=== PATIENT | female | born 1965 | race Caucasian/White ===

== ENCOUNTER → 2017-03-05 | Outpatient (CLI) | payer BC ==
--- NOTE | 2017-03-05 09:42 | US ---
EXAMINATION TYPE: US thyroid st tissue head/neck DATE OF EXAM: 03/05/2017 8:44 AM COMPARISON: EXAMINATION TYPE: US thyroid st tissue head/neck DATE OF EXAM: 03/05/2017 8:44 AM COMPARISON: NONE CLINICAL HISTORY: Neck Swelling R22.1. Patient recently starting lifting weights and has pain/swellin g posterior left neck. Scanned left posterior neck over area of swelling as well as the right side for comparison purposes, no ultrasound abnormality noted. No worrisome solid or cystic mass or fluid collection is seen on images saved. Normal skin, subcutane ous tissue, and deeper muscles is identified. IMPRESSION: As above.
== END | disposition home or self-care (01) ==
LOC: RADUSWWP 08:42
PROVIDERS: ATTEND Family Medicine
DX: R22.1 Localized swelling, mass and lump, neck (principal)
CPT/HCPCS: 76536

== ENCOUNTER → 2017-03-24 | Outpatient (CLI) | payer BC ==
[2017-03-24 07:06] LABS: Blood Urea Nitrogen 10 mg/dL (7-17); Non-African American GFR(MDRD) >60 (>60 ml/min/1.73 sqM)
--- NOTE | 2017-03-24 08:29 | MR ---
EXAMINATION TYPE: MR neck wo/w con DATE OF EXAM: 03/24/2017 8:03 AM COMPARISON: NONE HISTORY: Neck mass CONTRAST: Standard multiplanar, multisequence MRI departmental protocol utilizing 20 mL intravenous MultiHance gadolinium contrast. FINDINGS: Visualized intracranial structures are normal. The major salivary glands are normal. The parapharyngeal, oropharyngeal and laryngeal soft tissues are normal. The thyroid gland enhances homogeneously. There is no significant cervical adenopathy. At the site of clinical concern, there is an intramuscular lipoma measuring 8.1 x 9 x 4.1 cm. This is situated between the trapezius muscle and displaces the levator scapulas muscle anteriorly. This dem onstrates no significant enhancement. 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
== END | disposition home or self-care (01) ==
LOC: RADMRIMAIN 06:38
PROVIDERS: ATTEND Family Medicine
DX: D17.0 Benign lipomatous neoplasm of skin and subcutaneous tissue of head, face and neck (principal)
CPT/HCPCS: 82565; 84520; 70543; A9577

== ENCOUNTER → 2017-04-04 | Outpatient (CLI) | payer BC ==
--- NOTE | 2017-04-07 11:49 | MM ---
Reason for exam: screening (asymptomatic). Last mammogram was performed 1 year ago. Physical Findings: A clinical breast exam by your physician is recommended on an annual basis and results should be correlated with mammographic findings. MG Screening Mammo w CAD Bilateral CC and MLO view(s) were taken. Prior study comparison: March 22, 2016, bilateral MG screening mammo w CAD. February 24, 2015, bilateral MG screening mammo w CAD. July 20, 2013, bilateral digital screening mammo w/CAD. The breast tissue is heterogeneously dense. This may lower the sensitivity of mammography. There is no discrete abnormality. ASSESSMENT: Negative, BI-RAD 1 RECOMMENDATION: Routine screening mammogram of both breasts in 1 year.
== END | disposition home or self-care (01) ==
LOC: RADMAMWWP 10:39
PROVIDERS: ATTEND Obstetrics & Gynecology
DX: Z12.31 Encounter for screening mammogram for malignant neoplasm of breast (principal)

== ENCOUNTER → 2017-10-07 | Outpatient (CLI) | payer BC ==
[2017-10-07 09:29] LABS: Basophils % (A) 0 %; CH 25.1; CHCM 31.5; Eosinophils # (A) 0.1 k/uL (0-0.7); Eosinophils % (A) 2 %; HCT 38.9 % (34.0-46.0); Hypochromasia Slight; Luc # (Auto) 0.14; Luc % (Auto) 4; Lymphocytes % (A) 30 %; MCH 24.6 pg (25.0-35.0); MCHC 30.8 g/dL (31.0-37.0); MCV 79.9 fL (80.0-100.0); Mean Platelet Volume 6.5; Monocytes # (A) 0.3 k/uL (0-1.0); Monocytes % (A) 7 %; Neutrophils # (A) 1.9 k/uL (1.3-7.7); Neutrophils % (A) 57 %; RBC 4.87 m/uL (3.80-5.40); WBC 3.4 k/uL (3.8-10.6); WBC (Perox) 3.45
== END | disposition home or self-care (01) ==
LOC: LABPAT 08:39
PROVIDERS: ATTEND Obstetrics & Gynecology
DX: I10 Essential (primary) hypertension (principal); Z01.812 Encounter for preprocedural laboratory examination; N92.0 Excessive and frequent menstruation with regular cycle; N85.01 Benign endometrial hyperplasia
CPT/HCPCS: 85025; 87086; 93005

== ENCOUNTER → 2017-10-07 | Outpatient (CLI) | payer BC ==
[2017-10-07 09:29] LABS: ALT 31 U/L (9-52); AST 19 U/L (14-36); Alkaline Phosphatase 78 U/L (38-126); Anion Gap 10 mmol/L; Blood Urea Nitrogen 14 mg/dL (7-17); Calcium 9.7 mg/dL (8.4-10.2); Carbon Dioxide 25 mmol/L (22-30); Chloride 106 mmol/L (98-107); Cholesterol 240 mg/dL (<200); Glucose 107 mg/dL (74-99); HDL Cholesterol 41 mg/dL (40-60); Non-African American GFR(MDRD) >60 (>60 ml/min/1.73 sqM); Potassium 4.4 mmol/L (3.5-5.1); Sodium 141 mmol/L (137-145); Total Bilirubin 0.3 mg/dL (0.2-1.3); Total Protein 6.9 g/dL (6.3-8.2)
== END | disposition home or self-care (01) ==
LOC: LABWHC1 08:36
PROVIDERS: ATTEND Family Medicine
DX: I10 Essential (primary) hypertension (principal); E03.9 Hypothyroidism, unspecified; E78.00 Pure hypercholesterolemia, unspecified
CPT/HCPCS: 36415; 80053; 80061; 84439; 84443

== ENCOUNTER 2017-10-14 07:53 | Observation (INO) | payer BC ==
[2017-10-08 12:25] VITALS: BMI 30.5
[~2017-10-14 07:53] MED LIST: DEXAMETHASONE SOD PHOSPHATE 10 MG/ML 1 ML VIAL IV ONE; HYDROmorphone 0.5 MG/0.5 ML SYRINGE IVP PRN; LACTATED RINGERS 1,000 ML IV SCH; MIDAZOLAM 2 MG/2 ML VIAL IV PRN; ONDANSETRON 4 MG/2 ML VIAL IVP ONE; ceFAZolin IN SWFI 2 GM/20 ML SYRINGE IVP ONE
[2017-10-14] MEDS ORDERED: LIDOCAINE 1% 20 ML VIAL (10MG/ML) FOR IV START INTRADERMA ONE (08:15)
[2017-10-14] MEDS ORDERED: MIDAZOLAM 2 MG/2 ML VIAL IVP ONE (08:51)
[2017-10-14] MEDS ORDERED: fentaNYL (PF) 50 MCG/ML 2 ML AMP IV ONE (08:51)
[2017-10-14] MEDS ORDERED: PROPOFOL 10 MG/ML 20 ML VIAL IV ONE (09:21)
[2017-10-14] MEDS ORDERED: LIDOCAINE 1% INJ 10MG/ML (20 ML MDV) ONE (09:21)
[2017-10-14] MEDS ORDERED: fentaNYL (PF) 50 MCG/ML 2 ML AMP ONE (09:21)
[2017-10-14] MEDS ORDERED: ROCURONIUM BROMIDE 10 MG/ML 10 ML VIAL IV ONE (09:21)
[2017-10-14] MEDS ORDERED: GLYCOPYRROLATE 0.2 MG/ML 2 ML VIAL ONE (09:21)
[2017-10-14] MEDS ORDERED: diphenhydrAMINE 50 MG/ML 1 ML VIAL ONE (09:21)
[2017-10-14] MEDS ORDERED: SUCCINYLCHOLINE CHLORIDE 100 MG/5 ML SYR IV ONE (09:21)
[2017-10-14] MEDS ORDERED: KETOROLAC 30 MG/ML 1 ML VIAL ONE (09:21)
[2017-10-14] MEDS ORDERED: ePHEDrine SULFATE/0.9% NACL/PF 50 MG/5 ML SYRINGE IV ONE (09:21)
[2017-10-14] MEDS ORDERED: NEOSTIGMINE 1 MG/ML 10 ML VIAL ONE (09:21)
[2017-10-14] MEDS ORDERED: VASOPRESSIN 20 UNIT/ML 1 ML VIAL IM ONE (09:38)
[2017-10-14] MEDS ORDERED: VASOPRESSIN 20 UNIT/ML 1 ML VIAL SQ ONE (09:38)
[2017-10-14] MEDS ORDERED: BACITRACIN 500 UNIT/GM OINT 28.4 GM TUBE TOPICAL ONE ×3 (09:52→10:09)
[2017-10-14] MEDS ORDERED: KETOROLAC 30 MG/ML 1 ML VIAL IVP PRN ×2 (10:02→10:20)
[2017-10-14] MEDS ORDERED: MORPHINE SULFATE 4 MG/ML SYRINGE IVP PRN (10:02)
[2017-10-14] MEDS ORDERED: diphenhydrAMINE 50 MG/ML 1 ML VIAL IVP PRN ×2 (10:02→10:20)
[2017-10-14] MEDS ORDERED: NALOXONE 0.4 MG/ML 1 ML VIAL IV PRN (10:02)
[2017-10-14] MEDS ORDERED: LACTATED RINGERS 1,000 ML IV ONE (10:12)
[2017-10-14] MEDS ORDERED: IBUPROFEN 600 MG TAB PO PRN (10:20)
[2017-10-14] MEDS ORDERED: ONDANSETRON 4 MG/2 ML VIAL IVP PRN (10:20)
[2017-10-14] MEDS ORDERED: ZOLPIDEM 5 MG TAB PO PRN (10:20)
[2017-10-14] MEDS ORDERED: Acetaminophen-Codeine 300-30mg TAB PO PRN (10:20)
[2017-10-14] MEDS ORDERED: METOCLOPRAMIDE 5 MG/ML 2 ML VIAL IVP PRN (10:20)
[2017-10-14] MEDS ORDERED: SIMETHICONE 80 MG CHEWABLE PO PRN (10:20)
--- NOTE | 2017-10-14 10:20 | P.OP ---
Date of Procedure: 10/14/17 Preoperative Diagnosis: Persistent menorrhagia Postoperative Diagnosis: Same, pathology pending, normal-appearing ovaries bilaterally Procedure(s) Performed: Vaginal hysterectomy Anesthesia: AFTABA Surgeon: Nasrin Isidro Laboratory Monitor #1: Phyllis Payne Estimated Blood Loss (ml): 50 IV fluids (ml): 900 Urine output (ml): 200 Pathology: other (Cervix and uterus) Condition: stable Disposition: PACU Indications for Procedure: Persistent heavy bleeding despite NovaSure ablation. Description of Procedure: Patient is brought to the operating suite where a general anesthetic is administered after the spinal with Duramorph is placed. She is put in the dorsal lithotomy position. Urine hCG is negative. The appropriate timeout is performed to assure proper patient and procedural identification. Antibiotics are given. Bladder is drained for approximately 200 mL of clear yellow urine. Weighted speculum was placed into the vagina. Anterior lip of the cervix is grasped with a double-tooth tenaculum. Cervix is injected circumferentially with a dilute Pitressin solution. A red lake blade scalpel is used to incise the mucosa with V like positioning in the back. Sponge rolled finger is used to sweep the mucosa from the underlying plane. Metzenbaum scissors are used to enter the peritoneum at 6:00, and this is suture tied with 2-0 Vicryl and held with a hemostat. The large billed speculum is then placed into the peritoneal cavity. At all times the vaginal mucosa is swept well from the operative field. The right uterosacral cardinal ligament is identified, clamped cut and held with a 0 Vicryl suture in a Bud-like fashion. Same procedure is carried out contralaterally. Uterine vasculature is identified, clamped cut and suture ligated. 2 additional pedicles are taken superior to the vessels. The uterus is then "walked out" posteriorly. The anterior peritoneum is entered with the Bovie. Maryse clamps are used across the final pedicles and the uterus and cervix are removed. The pedicles are tied with a Bud stitch with 0 Vicryl, flashed, retied for excellent hemostasis. Bilateral ovaries are inspected and noted to be in the normal range, therefore left in situ per the patient's wishes. Hemostasis is very good. Speculum is changed. The 2-0 Vicryl suture at 6:00 is next brought around in a pursestring fashion to close the peritoneum. The previously held uterosacral cardinal ligaments are then brought across contralaterally to incorporate the opposite pedicle as well as the mucosa. 3 additional [id number]-[id number] sutures are used for final cuff closure. Flores catheter is placed in the urine is noted to be clear. The vagina is packed with a 1 inch iodophor gauze with basic tracing. Hemostasis is excellent. All sponge needle and enhancement counts are correct at the end of our procedure. Patient is brought back to recovery room in stable condition with vital signs blood pressure 96/50, pulse 63, 97% O2 saturation.
[2017-10-14] MEDS: ONDANSETRON 4 MG/2 ML VIAL IVP PRN ×2 (15:18→22:00)
[2017-10-14] MEDS ORDERED: PRAVASTATIN SODIUM 20 MG TAB PO SCH (21:00)
[2017-10-14] MEDS: SENNOSIDES-DOCUSATE SODIUM 1 EACH TAB PO SCH (21:41)
[2017-10-15 04:11] VITALS: RESP 16
[2017-10-15] MEDS ORDERED: LEVOTHYROXINE 75 MCG TAB PO SCH (06:30)
--- NOTE | 2017-10-15 08:15 | P.DS ---
Providers Date of admission: 10/14/17 20:37 Expected date of discharge: 10/15/17 Attending physician: Nasrin Isidro Primary care physician: [facility] Course: This is a 52-year-old white female who presented with persistent hypermenorrhea and menorrhagia. Endometrial biopsy previously revealed endometrial hyperplasia without atypia. Patient elected at this point to proceed with vaginal hysterectomy. Please see my admitting history and physical for details. Patient was admitted yesterday a [facility] and underwent a vaginal hysterectomy under my care. She did very well intraoperatively, ovaries were kept in situ per her wishes is the did appear normal to inspection. Vagina was packed with iodoform gauze and Flores catheter placed. Patient did receive a spinal with Duramorph for analgesic purposes. Please see my dictated operative note for details. The patient is doing well. Flores catheter and vaginal packing had been removed. She is voiding, ambulating, and passing flatus without difficulty. Vital signs are stable and she is afebrile. She is tolerating regular diet, and is showering. Pain is well-controlled. Patient is being discharged home later today in very good condition. She will follow-up with me in the office in 2 weeks. I have reminded her no intercourse , tampons or douching. She will use [id number] ibuprofen products, 200 mg pills, 3 every 6 hours as needed for pain. I've asked her to call me with any fevers shakes or chills, foul smelling or bloody vaginal drainage, with any pain not alleviated by eree-jci-holaadu ibuprofen, or indeed with any difficulties or concerns. No driving, no intercourse, no heavy lifting, no vacuuming. She will follow-up with the office in 2 weeks for postoperative check, or as needed for any concerns. Patient Condition at Discharge: Good Plan - Discharge Summary Discharge Rx Participant: Yes New Discharge Prescriptions: No Action Lisinopril [Prinivil] 20 mg PO DAILY FLUoxetine HCL [PROzac] 20 mg PO DAILY Levothyroxine Sodium [Synthroid] 75 mcg PO DAILY Pravastatin Sodium [Pravachol] 20 mg PO DAILY Discharge Medication List FLUoxetine HCL [PROzac] 20 mg PO DAILY 09/03/14 [History] Levothyroxine Sodium [Synthroid] 75 mcg PO DAILY 09/03/14 [History] Lisinopril [Prinivil] 20 mg PO DAILY 09/03/14 [History] Pravastatin Sodium [Pravachol] 20 mg PO DAILY 11/20/16 [History] Follow up Appointment(s)/Referral(s): Nasrin Isidor MD [STAFF PHYSICIAN] - 2 Weeks Discharge Disposition: HOME SELF-CARE
--- NOTE | 2017-10-15 08:26 | P.PN ---
Progress Note - Text Date:10/15 Time:710 Patient is status post vaginal hystrectomy. Patient seen this morning with VAS score of 2. c/o of pruritus, c/o nausea/vomiting. She is comfortable and doing well today.
[2017-10-15] MEDS ORDERED: LISINOPRIL 20 MG TAB PO SCH (09:00)
[2017-10-15] MEDS ORDERED: FLUoxetine HCL 20 MG CAP PO SCH (09:00)
[2017-10-15] MEDS: SENNOSIDES-DOCUSATE SODIUM 1 EACH TAB PO SCH (09:37)
[2017-10-15 10:22] VITALS: BP 106/58; PULSE 80; TEMP 99.1
[2017-10-15] MEDS ORDERED: ACETAMINOPHEN TAB 325 MG TAB PO PRN (10:22)
== END 2017-10-15 12:40 | disposition home or self-care (01) ==
LOC: OR 07:53 → 6PED 10:16 → OR 20:37
PROVIDERS: ADMIT Obstetrics & Gynecology; ATTEND Obstetrics & Gynecology
DX: D25.9 Leiomyoma of uterus, unspecified (principal); N92.0 Excessive and frequent menstruation with regular cycle; N85.01 Benign endometrial hyperplasia; Z79.899 Other long term (current) drug therapy; E78.00 Pure hypercholesterolemia, unspecified; I10 Essential (primary) hypertension
CPT/HCPCS: 81025; 86900; 86901; 86850; 88307; 58260; G0378 ×2; J2250; J1200; J1100; J2710; J0690; J2405; J2001; J3010; J1885; J0330; J2704

== ENCOUNTER 2018-02-01 10:29 | Emergency (ER) | payer BC ==
[2018-02-01 10:54] VITALS: PULSE 87; RESP 18; TEMP 98.7
[2018-02-01 11:35] LABS: Basophils % (A) 1 %; Eosinophils # (A) 0.1 k/uL (0-0.7); Eosinophils % (A) 2 %; HGB 12.3 gm/dL (11.4-16.0); Lymphocytes # (A) 0.8 k/uL (1.0-4.8); Lymphocytes % (A) 21 %; MCH 25.9 pg (25.0-35.0); MCHC 33.2 g/dL (31.0-37.0); MCV 77.9 fL (80.0-100.0); Microcytosis Slight; Monocytes # (A) 0.2 k/uL (0-1.0); Monocytes % (A) 5 %; Neutrophils # (A) 2.5 k/uL (1.3-7.7); Neutrophils % (A) 69 %; Platelet Count 300 k/uL (150-450); RBC 4.74 m/uL (3.80-5.40); RDW 15.4 % (11.5-15.5); WBC 3.6 k/uL (3.8-10.6)
[2018-02-01 11:38] LABS: Appearance,Urine Cloudy (Clear); Bacteria,Urine Rare /hpf; Bilirubin,Urine Negative (Negative); Blood,Urine Negative (Negative); Calcium Oxalate Crystals,Urine Rare /hpf; Color,Urine Yellow; Glucose,Urine (UA) Negative (Negative); Ketones,Urine Negative (Negative); Leukocyte Esterase,Urine Negative (Negative); Mucus,Urine Few /hpf; Nitrite,Urine Negative (Negative); Protein,Urine Trace (Negative); RBC,Urine 1 /hpf (0-5); Specific Gravity,Urine 1.019 (1.001-1.035); Squamous Epithelial Cell,Urine 5 /hpf (0-4); Urobilinogen,Urine <2.0 mg/dL (<2.0); WBC,Urine 3 /hpf (0-5)
[2018-02-01 11:46] LABS: ALT 127 U/L (9-52); AST 85 U/L (14-36); Albumin 4.2 g/dL (3.5-5.0); Alkaline Phosphatase 94 U/L (38-126); Amylase 43 U/L (30-110); Anion Gap 13 mmol/L; Blood Urea Nitrogen 11 mg/dL (7-17); Calcium 9.5 mg/dL (8.4-10.2); Carbon Dioxide 24 mmol/L (22-30); Chloride 105 mmol/L (98-107); Glucose 149 mg/dL (74-99); Lipase 45 U/L (23-300); Potassium 4.1 mmol/L (3.5-5.1); Sodium 142 mmol/L (137-145); Total Bilirubin 0.5 mg/dL (0.2-1.3); Total Protein 6.9 g/dL (6.3-8.2)
--- NOTE | 2018-02-01 12:18 | XR ---
EXAMINATION TYPE: XR KUB DATE OF EXAM: 02/01/2018 12:10 PM CLINICAL HISTORY: Abdominal pain TECHNIQUE: Single upright image of the abdomen is obtained. COMPARISON: None. FINDINGS: Scattered gas is seen in non-distended small bowel loops. Gas and fecal material is seen in non-distended colon. There is no visceromegaly or pneumoperitoneum appreciated. Layering calcificati ons could be within an elongated gallbladder and represent choleliths, within a partially exophytic r enal cyst, or atypical nephrolithiasis. The lung bases are clear and the osseous structures are intac t. IMPRESSION: 1. Nonobstructive bowel gas pattern. 2. Layering calcifications are thought to be within an elongated gallbladder but could represent calc ifications of a partially exophytic renal cyst or atypical nephrolithiasis. Abdominal ultrasound coul d be performed for further evaluation of potential cholelithiasis.
--- NOTE | 2018-02-01 12:38 | ED ---
General Adult HPI - General Chief complaint: Abdominal Pain Stated complaint: SOB & vomiting Time Seen by Provider: 02/01/18 10:50 Source: patient, RN notes reviewed Mode of arrival: ambulatory Limitations: no limitations - History of Present Illness Initial comments: This is a 52-year-old female presents emergency department stating that she has been having a dry cough for about a month now. Patient states she has not followed up. Patient comes in today complaining that she started having epigastric and a little bit of right upper quadrant abdominal pain this morning she vomited a couple times and so she decided to come into the emergency department secondary to a these symptoms. Patient denies any fever or chills. Patient denies any dysuria hematuria urinary frequency. Patient denies any back pain. Patient denies patient states earlier when she was having abdominal pain and vomiting she felt short of breath per say she stop vomiting or shortness of breath resolved. Patient denies any chest pain and denies difficulty breathing at this time. - Related Data Home Medications Medication Instructions Recorded Confirmed FLUoxetine HCL [PROzac] 20 mg PO DAILY 09/03/14 02/01/18 Levothyroxine Sodium [Synthroid] 75 mcg PO DAILY 09/03/14 02/01/18 Pravastatin Sodium [Pravachol] 20 mg PO DAILY 11/20/16 02/01/18 Losartan/Hydrochlorothiazide 1 tab PO DAILY 02/01/18 02/01/18 [Losartan-Hctz 100-12.5 mg Tab] Allergies Allergy/AdvReac Type Severity Reaction Status Date / Time No Known Allergies Allergy Verified 02/01/18 13:03 Review of Systems ROS Statement: Those systems with pertinent positive or pertinent negative responses have been documented in the HPI. ROS Other: All systems not noted in ROS Statement are negative. Past Medical History Past Medical History: Hyperlipidemia, Hypertension, Thyroid Disorder History of Any Multi-Drug Resistant Organisms: None Reported Past Surgical History: Hysterectomy Additional Past Surgical History / Comment(s): tummy tuck. COLONOSCOPY. lipoma removed Past Anesthesia/Blood Transfusion Reactions: No Reported Reaction Past Psychological History: Depression Smoking Status: Never smoker Past Alcohol Use History: Occasional Past Drug Use History: None Reported - Past Family History Mother Family Medical History: No Reported History Additional Family Medical History / Comment(s): mom of stomach aneurysm General Exam - General Exam Comments Initial Comments: GENERAL: Patient is well-developed and well-nourished. Patient is nontoxic and well- hydrated and is in mild distress. ENT: Neck is soft and supple. No significant lymphadenopathy is noted. Oropharynx is clear. Moist mucous membranes. Neck has full range of motion without eliciting any pain. EYES: The sclera were anicteric and conjunctiva were pink and moist. Extraocular movements were intact and pupils were equal round and reactive to light. Eyelids were unremarkable. PULMONARY: Unlabored respirations. Good breath sounds bilaterally. No audible rales rhonchi or wheezing was noted. CARDIOVASCULAR: There is a regular rate and rhythm without any murmurs gallops or rubs. ABDOMEN: Epigastric abdominal pain and mild right upper quadrant abdominal pain SKIN: Skin is clear with no lesions or rashes and otherwise unremarkable. NEUROLOGIC: Patient is alert and oriented x3. Cranial nerves II through XII are grossly intact. Motor and sensory are also intact. Normal speech, volume and content. Symmetrical smile. MUSCULOSKELETAL: Normal extremities with adequate strength and full range of motion. No lower extremity swelling or edema. No calf tenderness. LYMPHATICS: No significant lymphadenopathy is noted PSYCHIATRIC: Normal psychiatric evaluation. Normal interpersonal interactions appears functionally intact in deals appropriately with others. No signs of depression. No signs of anxiety. Limitations: no limitations Course Vital Signs 02/01/18 10:51 Temperature 98.7 F Pulse Rate 87 Respiratory 18 Rate Blood Pressure 139/94 O2 Sat by Pulse 96 Oximetry Medical Decision Making - Medical Decision Making Ultrasound showed no signs of cholecystitis but did have cholelithiasis. I went back into reevaluate the patient patient was having no pain at this time. Ultrasound also showed some abnormality to the acute kidney and is recommending an outpatient CT of the kidney. I informed the patient of this. - Lab Data Result diagrams: 02/01/18 11:20 02/01/18 11:20 Lab Results 02/01/18 02/01/18 02/01/18 Range/Units 11:20 11:20 11:20 WBC 3.6 L (3.8-10.6) k/uL RBC 4.74 (3.80-5.40) m/uL Hgb 12.3 (11.4-16.0) gm/dL Hct 37.0 (34.0-46.0) % MCV 77.9 L (80.0-100.0) fL MCH 25.9 (25.0-35.0) pg MCHC 33.2 (31.0-37.0) g/dL RDW 15.4 (11.5-15.5) % Plt Count 300 (150-450) k/uL Neutrophils % 69 % Lymphocytes % 21 % Monocytes % 5 % Eosinophils % 2 % Basophils % 1 % Neutrophils # 2.5 (1.3-7.7) k/uL Lymphocytes # 0.8 L (1.0-4.8) k/uL Monocytes # 0.2 (0-1.0) k/uL Eosinophils # 0.1 (0-0.7) k/uL Basophils # 0.0 (0-0.2) k/uL Microcytosis Slight Sodium 142 (137-145) mmol/L Potassium 4.1 (3.5-5.1) mmol/L Chloride 105 (98-107) mmol/L Carbon Dioxide 24 (22-30) mmol/L Anion Gap 13 mmol/L BUN 11 (7-17) mg/dL Creatinine 0.60 (0.52-1.04) mg/dL Est GFR (CKD-EPI)AfAm >90 (>60 ml/min/1.73 sqM) Est GFR (CKD-EPI)NonAf >90 (>60 ml/min/1.73 sqM) Glucose 149 H (74-99) mg/dL Calcium 9.5 (8.4-10.2) mg/dL Total Bilirubin 0.5 (0.2-1.3) mg/dL AST 85 H (14-36) U/L ALT 127 H (9-52) U/L Alkaline Phosphatase 94 (38-126) U/L Total Protein 6.9 (6.3-8.2) g/dL Albumin 4.2 (3.5-5.0) g/dL Amylase 43 (30-110) U/L Lipase 45 (23-300) U/L Urine Color Yellow Urine Appearance Cloudy H (Clear) Urine pH 6.0 (5.0-8.0) Ur Specific [place] 1.019 (1.001-1.035) Urine Protein Trace H (Negative) Urine Glucose (UA) Negative (Negative) Urine Ketones Negative (Negative) Urine Blood Negative (Negative) Urine Nitrite Negative (Negative) Urine Bilirubin Negative (Negative) Urine Urobilinogen <2.0 (<2.0) mg/dL Ur Leukocyte Esterase Negative (Negative) Urine RBC 1 (0-5) /hpf Urine WBC 3 (0-5) /hpf Ur Squamous Epith Cells 5 H (0-4) /hpf Calcium Oxalate Crystal Rare H (None) /hpf Urine Bacteria Rare H (None) /hpf Urine Mucus Few H (None) /hpf Disposition Clinical Impression: Cholelithiasis, Biliary colic Disposition: HOME SELF-CARE Condition: Good Instructions: Biliary Colic (ED), Gallstones (ED) Referrals: Melissa Arzate MD [Primary Care Provider] - 1-2 days Time of Disposition: 13:54
--- NOTE | 2018-02-01 13:08 | US ---
EXAMINATION TYPE: US gallbladder DATE OF EXAM: 02/01/2018 COMPARISON: NONE CLINICAL HISTORY: Pain. Patient states coughing x 2-3 months. Pain. Not NPO. Stomach tightness. EXAM MEASUREMENTS: Liver Length: 24.8 cm Gallbladder Wall: 0.2 cm CBD: 0.5 cm CHD: 0.5 cm Right Kidney: 11.4 x 5.4 x 6.4 cm cm Limited exam due to overlying bowel gas Pancreas: Obscured by bowel gas Liver: Increased attenuation, decreased visualization of vessels suggestive of fatty infiltrate. Thi s limits evaluation for focal hepatic lesions. Gallbladder: Mobile echogenic foci with shadowing seen. Possible sludge. Evidence for sonographic Sanz's sign: neg CBD: wnl CHD: wnl Right Kidney: Complex lower pole echogenic lesion, nonvascular with shadowing seen = 2.1 x 1.4 x 1. 9 cm IMPRESSION: 1. Cholelithiasis without sonographic evidence of acute cholecystitis. 2. Findings most compatible with hepatic steatosis, appearing at least moderate. 3. Complex lower pole right renal lesion for which full characterization on a nonemergent basis with dynamic contrast-enhanced CT or MR abdomen (renal mass protocol) is recommended.
--- NOTE | 2018-02-01 13:31 | XR ---
EXAMINATION TYPE: XR chest 2V DATE OF EXAM: 02/01/2018 COMPARISON: 10/10/2014 HISTORY: Chest pain and nausea TECHNIQUE: Frontal and lateral views of the chest are obtained. FINDINGS: There is no focal air space opacity, pleural effusion, or pneumothorax seen. The cardiac silhouette size is within normal limits. The osseous structures are intact. IMPRESSION: No acute cardiopulmonary process.
[2018-02-01 14:01] VITALS: BP 138/87
== END 2018-02-01 14:01 | disposition home or self-care (01) ==
LOC: EC 10:29
DX: K80.70 Calculus of gallbladder and bile duct without cholecystitis without obstruction (principal); E78.5 Hyperlipidemia, unspecified; I10 Essential (primary) hypertension; E07.9 Disorder of thyroid, unspecified; F32.9 Major depressive disorder, single episode, unspecified; Z90.710 Acquired absence of both cervix and uterus; Z79.899 Other long term (current) drug therapy
CPT/HCPCS: 36415; 71046; 74018; 76705; 80053; 81001; 82150; 83690; 85025; 99284

== ENCOUNTER → 2018-02-06 | Outpatient (CLI) | payer BC ==
--- NOTE | 2018-02-06 09:49 | CT ---
EXAMINATION TYPE: CT abdomen wo/w con DATE OF EXAM: 02/06/2018 HISTORY: Rt renal mass CT DLP: 1950.9mGycm Automated Exposure Control for Dose Reduction was Utilized. CONTRAST: CT scan of the abdomen was performed without and with IV Contrast, patient injected with 100 mL of Om nipaque 300. Oral contrast was used per protocol. COMPARISON: None. FINDINGS: LUNG BASES: No significant abnormality is appreciated. LIVER/GB: Hepatic parenchyma is diffusely hypoattenuated in comparison to that of the spleen, most co mmonly seen in hepatic steatosis. This finding limits evaluation for hepatic masses. No gross evidenc e of hepatic mass is seen. No intrahepatic biliary ductal dilatation. Numerous choleliths are seen wi thin the gallbladder. PANCREAS: There is no ductal dilatation within the pancreas. Pancreas enhances homogeneously. SPLEEN: No significant abnormality is seen. ADRENALS: No significant abnormality is seen. KIDNEYS: There is a minimally complex right lower pole renal cyst with peripheral posterior thin rim calcifications on series 3 image 42 measuring approximately 2.2 x 2.0 x 2.0 cm. This has an average p recontrast Hounsfield unit of 16, postcontrast of 22, and delayed of 23 and therefore no significant enhancement is seen. No mural nodularity. Small thin solitary internal septation is seen on series 8 image 92 and series 3 image 42, faint and hyperdense. Additionally there is an exophytic left upper p ole 1.0 cm renal cyst. The remaining kidney parenchyma enhances homogeneously bilaterally. No hydrone phrosis. BOWEL: Bowel wall thickening is noted of the transverse colon such as on series 5 image 42 at is long segment measuring over 7 cm.. LYMPH NODES: No greater than 1cm abdominal or pelvic lymph nodes are appreciated. Few nonenlarged per ipancreatic and periaortic lymph nodes are noted. OSSEOUS STRUCTURES: No significant abnormality is seen. Mild degenerative changes of the lower thorac olumbar spine as visualized are seen. OTHER: Extensive phlegmonous changes and inflammatory fat stranding center around a loop of probable unopacified, nonenhancing small bowel extending posteriorly to the pancreatic head and anteriorly to surround the transverse colon. No focal fluid collection or peripheral rim enhancement is seen to sug gest current abscess. IMPRESSION: 1. Extensive right paracentral mesenteric inflammatory fat stranding with adjacent long segment large bowel thickening, and extending to surround the pancreatic uncinate process. This could represent sp ontaneous hemorrhage, underlying mesenteric mass, or less likely extensive sequela of colitis or ente ritis, pancreatitis, or focal small bowel ischemia. If the patient is unstable ER visit is recommende d. Additionally surgical consultation is recommended. Correlation with CBC, serum amylase/lipase, and lactic acid recommended. Findings were discussed with the ordering physician at 9:46 AM on 02/06/[address] Coffey. 2. The right renal minimally complex lesion is thinning of a Bosniak 2F cyst given its rim calcificat ions and septa and six-month follow-up CT is recommended to ensure stability. 3. Cholelithiasis.
== END | disposition home or self-care (01) ==
LOC: RADCTMAIN 06:49
PROVIDERS: ATTEND Family Medicine
DX: N28.9 Disorder of kidney and ureter, unspecified (principal); K80.20 Calculus of gallbladder without cholecystitis without obstruction; K63.89 Other specified diseases of intestine
CPT/HCPCS: 74170; Q9967

== ENCOUNTER 2018-05-15 07:37 | Day surgery (SDC) | payer BC ==
[2018-05-12 09:17] VITALS: BMI 30.4
--- NOTE | 2018-05-15 07:04 | P.GSHP ---
History of Present Illness H&P Date: 05/15/18 CHIEF COMPLAINT: Cholecystitis HISTORY OF PRESENT ILLNESS: The patient is a 52-year-old female who presents with history of epigastric including right upper quadrant abdominal pain. She underwent diagnostic studies for her gallbladder. Separately her clinical picture was consistent with cholecystitis. Now she presents for surgical intervention. PAST MEDICAL HISTORY: Please see list PAST SURGICAL HISTORY: Please see list MEDICATIONS: Please see list ALLERGIES: Denies. SOCIAL HISTORY: No illicit drug use FAMILY HISTORY: Pertinent for gallbladder disease REVIEW OF ORGAN SYSTEMS: CONSTITUTIONAL: No reports of fevers or chills. HEENT: Denies any troubles with the vision or hearing. ENDOCRINE: No reports of hypothyroidism. No diabetes. RESPIRATORY: No recent pneumonias. CARDIOVASCULAR: Denies chest pain or palpitations GI: No blood in stools or constipation. MUSCULOSKELETAL: Has occasional joint pain including back pain. NEURO: No seizure disorders or headaches. No recent stroke. PSYCH: No depression or suicidal ideation. HEMATOLOGIC: No personal or family history of DVTs or pulmonary emboli. PHYSICAL EXAM: VITAL SIGNS: Afebrile vital signs stable GENERAL: Well-developed pleasant in no acute distress. HEENT: No scleral icterus. Extraocular movements grossly intact. Moist buccal mucosa. NECK: Supple without lymphadenopathy. CHEST: Unlabored respirations. Equal bilateral excursions. CARDIOVASCULAR: Regular rate regular rhythm rhythm. Distal 2+ pulses. ABDOMEN: Soft, nondistended. Tender along the epigastrium and right upper quadrant. MUSCULOSKELETAL: No clubbing, cyanosis, or edema. NEURO: Cranial nerves II to XII within normal limits. No focal or lateralizing signs. PSYCH: Alert and oriented to person, place and time. ASSESSMENT: 1. Epigastric and right upper quadrant abdominal pain 2. Chronic cholecystitis PLAN: 1. Will need a robotic cholecystectomy possible open. Benefits and risks were described. 2. Heparin for DVT prophylaxis 5000 units. 3. Antibiotic prophylaxis. Past Medical History Past Medical History: Hyperlipidemia, Hypertension, Thyroid Disorder History of Any Multi-Drug Resistant Organisms: None Reported Past Surgical History: Hysterectomy Additional Past Surgical History / Comment(s): tummy tuck. COLONOSCOPY. lipoma removed Past Anesthesia/Blood Transfusion Reactions: No Reported Reaction Smoking Status: Never smoker - Past Family History Mother Family Medical History: No Reported History Additional Family Medical History / Comment(s): mom of stomach aneurysm Medications and Allergies Home Medications Medication Instructions Recorded Confirmed Type FLUoxetine HCL [PROzac] 20 mg PO DAILY 09/03/14 05/12/18 History Levothyroxine Sodium [Synthroid] 75 mcg PO DAILY 09/03/14 05/12/18 History Pravastatin Sodium [Pravachol] 20 mg PO DAILY 11/20/16 05/12/18 History Losartan/Hydrochlorothiazide 1 tab PO DAILY 02/01/18 05/12/18 History [Losartan-Hctz 100-12.5 mg Tab] Allergies Allergy/AdvReac Type Severity Reaction Status Date / Time No Known Allergies Allergy Verified 05/12/18 08:57
[~2018-05-15 07:37] MED LIST changes: +HEPARIN SODIUM,PORCINE 5,000 UNIT/ML 1 ML VIAL SQ ONE; +INDOCYANINE GREEN 25 MG VIAL IV STA; +LIDOCAINE 1% 20 ML VIAL (10MG/ML) FOR IV START INTRADERMA PRN; +SCOPOLAMINE 1.5MG/72HR PATCH TRANSDERM ONE
[2018-05-15 08:19] LABS: ALT 33 U/L (9-52); AST 20 U/L (14-36); Albumin 4.2 g/dL (3.5-5.0); Alkaline Phosphatase 82 U/L (38-126); Anion Gap 10 mmol/L; Blood Urea Nitrogen 15 mg/dL (7-17); Calcium 9.5 mg/dL (8.4-10.2); Carbon Dioxide 26 mmol/L (22-30); Chloride 105 mmol/L (98-107); Glucose 115 mg/dL (74-99); Potassium 4.3 mmol/L (3.5-5.1); Sodium 141 mmol/L (137-145); Total Bilirubin 0.3 mg/dL (0.2-1.3); Total Protein 6.5 g/dL (6.3-8.2)
[2018-05-15 08:25] LABS: Basophils % (A) 0 %; Eosinophils # (A) 0.1 k/uL (0-0.7); Eosinophils % (A) 1 %; HCT 40.2 % (34.0-46.0); HGB 13.7 gm/dL (11.4-16.0); Lymphocytes # (A) 1.5 k/uL (1.0-4.8); Lymphocytes % (A) 31 %; MCH 27.8 pg (25.0-35.0); MCHC 34.2 g/dL (31.0-37.0); MCV 81.2 fL (80.0-100.0); Mean Platelet Volume 6.3; Monocytes # (A) 0.3 k/uL (0-1.0); Monocytes % (A) 5 %; Neutrophils # (A) 2.8 k/uL (1.3-7.7); Neutrophils % (A) 59 %; Platelet Count 333 k/uL (150-450); RBC 4.95 m/uL (3.80-5.40); RDW 14.6 % (11.5-15.5); WBC 4.8 k/uL (3.8-10.6)
[2018-05-15] MEDS ORDERED: SUCCINYLCHOLINE CHLORIDE 100 MG/5 ML SYR IV ONE (09:11)
[2018-05-15] MEDS ORDERED: NEOSTIGMINE 1 MG/ML 10 ML VIAL ONE (09:11)
[2018-05-15] MEDS ORDERED: MIDAZOLAM 2 MG/2 ML VIAL ONE (09:11)
[2018-05-15] MEDS ORDERED: GLYCOPYRROLATE 0.2 MG/ML 2 ML VIAL ONE (09:11)
[2018-05-15] MEDS ORDERED: PROPOFOL 10 MG/ML 20 ML VIAL IV ONE (09:11)
[2018-05-15] MEDS ORDERED: fentaNYL (PF) 50 MCG/ML 2 ML AMP ONE (09:11)
[2018-05-15] MEDS ORDERED: ROCURONIUM BROMIDE 10 MG/ML 10 ML VIAL IV ONE (09:11)
[2018-05-15] MEDS ORDERED: LIDOCAINE 1% INJ 10MG/ML (20 ML MDV) ONE (09:11)
[2018-05-15] MEDS ORDERED: BUPIVACAINE (PF) 0.5% 30 ML VIAL SQ ONE (09:39)
--- NOTE | 2018-05-15 10:49 | P.OP ---
Date of Procedure: 05/15/18 Preoperative Diagnosis: Cholecystitis Postoperative Diagnosis: Cholecystitis Procedure(s) Performed: Cholecystectomy, robotic approach Anesthesia: GETA, local Surgeon: Nasrin Randhawa Estimated Blood Loss (ml): 10 Pathology: other (Gallbladder) Condition: stable Disposition: same day Operative Findings: Severe fatty liver disease with hepatomegaly obscuring view of the gallbladder and adding additional time for her case Plan - Discharge Summary New Discharge Prescriptions: New HYDROcodone/APAP 5-325MG [[place] 5-325] 1 tab PO Q4HR PRN 3 Days #18 tab PRN Reason: Pain No Action FLUoxetine HCL [PROzac] 20 mg PO DAILY Levothyroxine Sodium [Synthroid] 75 mcg PO DAILY Pravastatin Sodium [Pravachol] 20 mg PO DAILY Losartan/Hydrochlorothiazide [Losartan-Hctz 100-12.5 mg Tab] 1 tab PO DAILY Discharge Medication List FLUoxetine HCL [PROzac] 20 mg PO DAILY 09/03/14 [History] Levothyroxine Sodium [Synthroid] 75 mcg PO DAILY 09/03/14 [History] Pravastatin Sodium [Pravachol] 20 mg PO DAILY 11/20/16 [History] Losartan/Hydrochlorothiazide [Losartan-Hctz 100-12.5 mg Tab] 1 tab PO DAILY 10/11 [History] HYDROcodone/APAP 5-325MG [[place] 5-325] 1 tab PO Q4HR PRN 3 Days #18 tab [Rx]
[2018-05-15 11:02] VITALS: TEMP 97.4
[2018-05-15] MEDS ORDERED: LACTATED RINGERS 1,000 ML IV ONE ×3 (11:22)
[2018-05-15] MEDS ORDERED: ONDANSETRON 4 MG/2 ML VIAL IVP ONE (11:27)
[2018-05-15] MEDS ORDERED: KETOROLAC 30 MG/ML 1 ML VIAL IVP ONE (11:28)
[2018-05-15 12:09] VITALS: RESP 18
[2018-05-15 12:39] VITALS: BP 133/68; PULSE 70
--- NOTE | 2018-05-17 22:34 | P.OP ---
Date of Procedure: 05/15/18 Description of Procedure: Date of Procedure: 05/15/18 SURGEON: KATHY LESTER MD PREOPERATIVE DIAGNOSES: 1. Symptomatic gallstones 2. Chronic cholecystitis 3. Hyperlipidemia 4. Hypertensive heart disease 5. Hypothyroidism 6. Depressive disorder 7. Obesity due to excess calories, BMI 30.5 POSTOPERATIVE DIAGNOSES: 1. Symptomatic gallstones 2. Chronic cholecystitis 3. Hyperlipidemia 4. Hypertensive heart disease 5. Hypothyroidism 6. Depressive disorder 7. Obesity due to excess calories, BMI 30.5 8. Severe hepatomegaly with fatty liver disease OPERATION: Robotic-assisted da Camille Xi laparoscopic cholecystectomy, multiport with FIREFLY Anesthesia: GETA, local Estimated Blood Loss (ml): 10 Pathology: other (Gallbladder) Condition: stable Disposition: same day COMPLICATIONS: None. OPERATIVE FINDINGS: 1. Severe fatty liver disease with hepatomegaly obscuring view of the gallbladder and adding additional time for her case INDICATIONS: The patient is a 52-year-old female who presents with cholelcystitis. Surgical intervention with a laparoscopic cholecystectomy was described at length including injury to the biliary tree, bleeding, infection, need for further surgery. Informed consent was obtained. Robotic assisted laparoscopic approach was described. Benefits and risks of the procedure including but not limited to bleeding, infection, injury to the biliary tree was described. Informed consent was obtained. DESCRIPTION OF PROCEDURE: Patient was brought to the operating room, placed in supine position. After general induction, the abdomen had been prepped and draped in standard sterile fashion. The robotic da Camille XI system was primed. After a timeout protocol was performed, the patient had been prepped and draped in standard sterile fashion. The patient was injected with indocyanine green. A 5 mm 0 degrees laparoscopic trocar entry was performed along the left upper quadrant. The abdomen insufflated to 15 mmHg pressure which she tolerated well. Diagnostic laparoscopy demonstrated no injury to bowel viscera or mesentery. The liver surface was unremarkable. Next, two 8 mm robotic ports were placed along the right upper abdomen. The camera 8-mm port was maintained along the epigastrium. Another 8 mm port was placed along the left upper abdominal wall after exchanging the 5 mm port. Please note that the ports were placed at least 10 to 15 cm away from the target anatomy of the gallbladder. The robot was docked along the left lateral abdomen. The patient was repositioned in steep reverse Trendelenburg position 20 degrees. Using a grasper for arm 3, a grasper for arm 4, including hook cautery for arm 1 , and the robotic system was docked and primed as described. Instruments were interchanged by the plumber assistant including hook cautery, Bovie cautery and clip appliers. I had sat at the console. Adhesions were identified along the infundibulum of the gallbladder and addressed using hook cautery. The gallbladder fundus was retracted over the dome of the liver. Initial attention was brought to the infundibulum which was gently retracted in the inferior lateral approach. Using a grasper, the cystic duct including the cystic artery was carefully skeletonized. FIREFLY was used to identify the cystic artery and cystic structures. Large PLASTIC clips were used throughout the entire case. Using a clip cloth grader supervisor 2 clips were placed proximally, and 1 clip was placed distally along the cystic duct and then cauterized with the cautery. Again care was taken to avoid any injury to the biliary tree as the common bile duct was clearly visualized during this portion of dissection. Next , the cystic artery was similarly clipped and cauterized. Electro-Bovie cautery was used to remove the gallbladder from the hepatic fossa. Hemostasis was checked and found to be adequate. The robot was undocked. I re-scrubbed into the case. Using a 10 mm Endo Catch bag via the left upper quadrant incision, the specimen was removed from the abdominal cavity. All pneumoperitoneum instruments were evacuated from the abdominal cavity. The incisions were re-approximated using 4-0 Monocryl in an interrupted subcuticular fashion. Fascial defects were less than 8 mm in size. Please note along the trocar sites, local anesthetic was placed as a field block prior to insertion of all instruments. Liquid glue was applied to the skin. At the end of the procedure needle, sponge, and instrument count had been verified correct by the rn neurosurgical. The patient was transferred to postanesthesia care unit in stable condition. Fatty liver findings discussed with family on the phone.
== END 2018-05-15 13:55 | disposition home or self-care (01) ==
LOC: OR 07:37
PROVIDERS: ATTEND Surgery Plastic and Reconstructive Surgery
DX: K80.10 Calculus of gallbladder with chronic cholecystitis without obstruction (principal); I11.9 Hypertensive heart disease without heart failure; F32.9 Major depressive disorder, single episode, unspecified; K82.8 Other specified diseases of gallbladder; E03.9 Hypothyroidism, unspecified; E78.5 Hyperlipidemia, unspecified; K76.0 Fatty (change of) liver, not elsewhere classified; R16.0 Hepatomegaly, not elsewhere classified; E66.09 Other obesity due to excess calories; Z68.30 Body mass index [BMI] 30.0-30.9, adult; Z79.899 Other long term (current) drug therapy
CPT/HCPCS: 88304; 80053; 85025; 47562; J2250; J1644; J1100; J2710; J2405; J2001; J3010; J1885; J0330; J2704; J0690

== ENCOUNTER → 2019-11-06 | Outpatient (CLI) | payer BC ==
--- NOTE | 2019-11-08 12:36 | CT ---
EXAMINATION TYPE: CT abdomen pelvis w con DATE OF EXAM: 11/06/2019 COMPARISON: 02/06/2018 INDICATION: Follow up to abn CT, renal mass DLP: 1518.4 mGycm, Automated exposure control for dose reduction was used. CONTRAST: 100 mL of Isovue 300. Study performed with Oral Contrast TECHNIQUE: Axial images were obtained from above the diaphragm to the pubic rami in the axial plane a t 5 mm thick sections. Reconstructed images are reviewed on the computer in the coronal plane. FINDINGS: Limited CT sections are obtained the lung bases. The lung bases are clear. CT ABDOMEN: Liver: There is mild to moderate fatty infiltration to the liver. No discrete masses or cysts are gladys dent. Spleen: Normal Pancreas: Normal Adrenal glands: The adrenal glands are normal. Gallbladder: Not identified. Correlate with surgical history. Gallbladder was previously present with gallstones. Kidneys: No masses are evident. No hydronephrosis is present. There is a 2.[address] on the inferior right kidney measuring 24 Hounsfield units. Tiny cortical renal cysts present on t he lateral left mid kidney measuring 1.0 cm. Delayed images were obtained through the kidneys, which remain unremarkable. Aorta: Normal Inferior vena cava: Normal. CT PELVIS: Loops of bowel within the abdomen and pelvis are normal. There a few diverticular changes within the sigmoid colon without evidence of acute diverticulitis. No suspicious changes suggest obstruction are evident. Previous transverse colon thickening and inflammatory changes are right upper quadrant are not evident at this time. Appendix: Normal as visualized. Urinary bladder: Normal. Genitourinary structures: Uterus is not identified. Adnexal regions are clear. Osseous structures: No suspicious lytic or sclerotic lesions. Degenerative disc changes are within th e lower lumbar spine. IMPRESSIONS: 1. Moderate fatty infiltration liver. 2. Diverticulosis without acute diverticulitis. 3. Resolution of previous changes of the right upper quadrant.
== END | disposition home or self-care (01) ==
LOC: RADCTMAIN 08:06
PROVIDERS: ATTEND Family Medicine
DX: K57.30 Diverticulosis of large intestine without perforation or abscess without bleeding (principal); K75.81 Nonalcoholic steatohepatitis (NASH)
CPT/HCPCS: 74177; Q9967 ×2

== ENCOUNTER → 2019-12-17 | Outpatient (CLI) | payer BC ==
--- NOTE | 2019-12-20 09:43 | MM ---
Reason for exam: screening (asymptomatic). Last mammogram was performed 2 years and 8 months ago. History: Patient is postmenopausal. Physical Findings: A clinical breast exam by your physician is recommended on an annual basis and results should be correlated with mammographic findings. MG 3D Screening Mammo W/Cad Bilateral CC and MLO view(s) were taken. Prior study comparison: April 04, 2017, bilateral MG screening mammo w CAD. March 22, 2016, bilateral MG screening mammo w CAD. The breast tissue is heterogeneously dense. This may lower the sensitivity of mammography. No suspicious abnormality. No significant changes when compared with prior studies. ASSESSMENT: Negative, BI-RAD 1 RECOMMENDATION: Routine screening mammogram of both breasts in 1 year.
== END | disposition home or self-care (01) ==
LOC: RADMAMWWP 09:45
PROVIDERS: ATTEND Family Medicine
DX: Z12.31 Encounter for screening mammogram for malignant neoplasm of breast (principal)
CPT/HCPCS: 77063; 77067

== ENCOUNTER → 2021-07-19 | Outpatient (CLI) | payer BC ==
--- NOTE | 2021-07-23 12:26 | MM ---
Reason for exam: screening (asymptomatic). Last mammogram was performed 1 year and 7 months ago. History: Patient is postmenopausal. Physical Findings: A clinical breast exam by your physician is recommended on an annual basis and results should be correlated with mammographic findings. MG 3D Screening Mammo W/Cad Bilateral CC and MLO view(s) were taken. Prior study comparison: December 17, 2019, bilateral MG 3d screening mammo w/cad. April 04, 2017, bilateral MG screening mammo w CAD. There are scattered fibroglandular densities. No significant changes when compared with prior studies. ASSESSMENT: Benign, BI-RAD 2 RECOMMENDATION: Routine screening mammogram of both breasts in 1 year.
== END | disposition home or self-care (01) ==
LOC: RADMAMWWP 11:23
PROVIDERS: ATTEND Family Medicine
DX: Z12.31 Encounter for screening mammogram for malignant neoplasm of breast (principal); Z78.0 Asymptomatic menopausal state
CPT/HCPCS: 77063; 77067

== ENCOUNTER → 2023-03-18 | Outpatient (CLI) | payer BC ==
--- NOTE | 2023-03-19 07:40 | MM ---
Reason for Exam: Screening (asymptomatic). Last mammogram was performed 1 year(s) and 8 month(s) ago. Patient History: Menarche at age 11. First Full-Term at age 24. Hysterectomy at age 53. Postmenopausal. Risk Values: Maria D 5 year model risk: 1.5%. NCI Lifetime model risk: 8.5%. Prior Study Comparison: 04/04/2017 Bilateral Screening Mammogram, [facility]. 12/17/2019 Bilateral Screening Mammogram, [facility]. 07/19/2021 Bilateral Screening Mammogram, [facility]. Tissue Density: The breast tissue is heterogeneously dense. This may lower the sensitivity of mammography. Findings: Analyzed By CAD. There is no suspicious group of microcalcifications or new suspicious mass in either breast. Overall Assessment: Negative, BI-RAD 1 Management: Screening Mammogram of both breasts in 1 year. A clinical breast exam by your physician is recommended on an annual basis and results should be correlated with mammographic findings. [facility] will attempt to contact patient to return for supplemental views and ultrasound if indicated. Electronically signed and approved by: Amadou Payton DO
== END | disposition home or self-care (01) ==
LOC: RADMAMWWP 08:26
PROVIDERS: ATTEND Obstetrics & Gynecology
DX: Z12.31 Encounter for screening mammogram for malignant neoplasm of breast (principal); Z78.0 Asymptomatic menopausal state
CPT/HCPCS: 77063; 77067

== ENCOUNTER → 2024-06-22 | Outpatient (CLI) | payer BC ==
--- NOTE | 2024-06-23 13:57 | MM ---
Reason for Exam: Screening (asymptomatic). Last mammogram was performed 1 year(s) and 3 month(s) ago. Patient History: Menarche at age 11. First Full-Term at age 24. Hysterectomy at age 53. Postmenopausal. Risk Values: Maria D 5 year model risk: 1.6%. NCI Lifetime model risk: 8.1%. Prior Study Comparison: 12/17/2019 Bilateral Screening Mammogram, [facility]. 07/19/2021 Bilateral Screening Mammogram, [facility]. 03/18/2023 Bilateral MG 3D screening mammo w/cad, [facility]. Tissue Density: The breasts are heterogeneously dense, which may obscure small masses. Findings: Analyzed By CAD. There is no suspicious group of microcalcifications or new suspicious mass in either breast. Overall Assessment: Negative, BI-RAD 1 Management: Screening Mammogram of both breasts in 1 year. . Patient should continue monthly self-breast exams. A clinical breast exam by your physician is recommended on an annual basis. This exam should not preclude additional follow-up of suspicious palpable abnormalities. Note on Maria D scores and lifetime risk: 1. A Maria D score greater than 3% is considered moderate risk. If this is the case, consider specialist referral to assess eligibility for a risk reducing agent. 2. If overall lifetime risk for the development of breast cancer is 20% or higher, the patient may qualify for future screening with alternating mammogram and breast MRI. Electronically signed and approved by: Juan Faye M.D. Radiologis
== END | disposition home or self-care (01) ==
LOC: RADMAMWWP 08:23
PROVIDERS: ATTEND Family Medicine
DX: Z12.31 Encounter for screening mammogram for malignant neoplasm of breast (principal); R92.333 Mammographic heterogeneous density, bilateral breasts; Z78.0 Asymptomatic menopausal state
CPT/HCPCS: 77063; 77067